=== PATIENT | male | born 1965 | race Caucasian/White ===

== ENCOUNTER → 2016-03-09 | Outpatient (CLI) | payer BC ==
--- NOTE | 2016-03-09 14:39 | CT ---
EXAMINATION TYPE: CT chest wo con DATE OF EXAM: 03/09/2016 2:10 PM COMPARISON: Chest x-ray October, right shoulder 06 November 2015 HISTORY: Solitary Pulmonary Nodule CT DLP: 633 mGycm Automated exposure control for dose reduction was used. FINDINGS: There is no endobronchial lesion, pleural or pericardial effusion. No bony abnormality to account for patient's nodular density seen on plain film. No evident lung mass. There is no mediastinal, axillar y, or hilar adenopathy. Small nodes present in the axillary regions. Aorta is not dilated. Gastric di verticulum is suspected at the cardiac. Diverticular changes associated with the colon. Gallbladder i s contracted. IMPRESSION: NO EVIDENT PULMONARY MASS. FINDINGS ON PLAIN FILM MAY REPRESENT SUPERIMPOSED SOFT TISSUE.
== END | disposition home or self-care (01) ==
LOC: RADCTMAIN 12:08
PROVIDERS: ATTEND Family Medicine
DX: R91.1 Solitary pulmonary nodule (principal)
CPT/HCPCS: 71250

== ENCOUNTER → 2016-04-18 | Outpatient (CLI) | payer BC ==
--- NOTE | 2016-04-18 16:59 | US ---
EXAMINATION TYPE: US scrotum with doppler. Grayscale and color Doppler Duplex imaging performed of t jovana scrotum. DATE OF EXAM: 04/18/2016 4:34 PM COMPARISON: Bilateral scrotal ultrasound February 22, 2012 CLINICAL HISTORY: Testicular Pain N50.8. Rt testicular pain. Pt states he is having rt groin hernia surgery on EXAM MEASUREMENTS: TESTICLES: Right Testicle: 3.9 x 3.4 x 2.8 cm Left Testicle: 3.9 x 2.4 x 3.1 cm EPIDIDYMIS HEAD: Right Epididymis: 1.3 x 1.0 x 1.6 cm Left Epididymis: 1.0 x 1.1 x 0.8 cm Doppler performed to assess for testicular vascularity; good bilateral color flow and waveforms are s een. TECHNOLOGIST IMPRESSION: No masses or lesions seen. Right epididymis appears heterogenous. Presence of hydroceles: no Presence of varicoceles: yes, inferior to left teste. Carine quynh performed. Color images shows satisfactory arterial blood flow to and venous return from both testicles. No susp icious focal intratesticular masses are identified. Heterogeneous right epididymis is noted. Comparison images show symmetric blood flow to both testicles without suspicious asymmetry or skin th ickening identified IMPRESSION: No suspicious asymmetric diminished or increased blood flow to right testicle is seen.
== END | disposition home or self-care (01) ==
LOC: RADUSWWP 16:03
PROVIDERS: ATTEND Surgery
DX: N50.819 Testicular pain, unspecified (principal)
CPT/HCPCS: 76870; 93975

== ENCOUNTER → 2016-04-18 | Outpatient (CLI) | payer BC ==
[2016-04-18 15:47] LABS: EKG EKG PERFORMED
[2016-04-18 16:01] LABS: Basophils % (A) 0 %; CH 30.7; CHCM 33.6; Eosinophils % (A) 1 %; HCT 43.3 % (39.0-53.0); HDW 2.86; HGB 14.1 gm/dL (13.0-17.5); Luc # (Auto) 0.16; Luc % (Auto) 3; Lymphocytes # (A) 1.9 k/uL (1.0-4.8); Lymphocytes % (A) 30 %; MCH 30.1 pg (25.0-35.0); MCHC 32.7 g/dL (31.0-37.0); MCV 91.9 fL (80.0-100.0); Mean Platelet Volume 6.9; Monocytes # (A) 0.3 k/uL (0-1.0); Monocytes % (A) 5 %; Neutrophils # (A) 3.9 k/uL (1.3-7.7); Neutrophils % (A) 62 %; RBC 4.71 m/uL (4.30-5.90); RDW 13.1 % (11.5-15.5); WBC 6.4 k/uL (3.8-10.6); WBC (Perox) 6.85
[2016-04-18 16:08] LABS: Anion Gap 11 mmol/L; Carbon Dioxide 27 mmol/L (22-30); Chloride 105 mmol/L (98-107); Potassium 4.4 mmol/L (3.5-5.1); Sodium 143 mmol/L (137-145)
[2016-04-18 16:13] LABS: Partial Thromboplastin Time 22.8 sec (22.0-30.0); Prothrombin Time 10.3 sec (9.0-12.0)
--- NOTE | 2016-04-18 22:11 | XR ---
EXAMINATION TYPE: XR chest 2V DATE OF EXAM: 04/18/2016 4:20 PM COMPARISON: 11/13/2015 TECHNIQUE: PA and lateral views submitted. HISTORY: Preop FINDINGS: The lungs are clear and there is no pneumothorax, pleural effusion, or focal pneumonia. Hypertrophi c and degenerative change of the spine. IMPRESSION: 1. No acute process.
== END ==
LOC: LABPAT 15:25
PROVIDERS: ATTEND Surgery
DX: Z01.818 Encounter for other preprocedural examination (principal); Z01.810 Encounter for preprocedural cardiovascular examination; Z01.812 Encounter for preprocedural laboratory examination
CPT/HCPCS: 71020; 80051; 85025; 85610; 85730; 93005

== ENCOUNTER 2016-04-21 10:40 | Day surgery (SDC) | payer BC ==
[2016-04-20 15:01] VITALS: BMI 26.4
[~2016-04-21 10:40] MED LIST: DEXAMETHASONE SOD PHOSPHATE 10 MG/ML 1 ML VIAL IV ONE; LACTATED RINGERS 1,000 ML IV SCH; LIDOCAINE 1% 20 ML VIAL (10MG/ML) FOR IV START INTRADERMA PRN; MIDAZOLAM 2 MG/2 ML VIAL IV PRN; SCOPOLAMINE 1.5MG/72HR PATCH TRANSDERM ONE; ceFAZolin 2 GM in SODIUM CHLORIDE 0.9% 100 ML IVPB ONE
[2016-04-21] MEDS ORDERED: LACTATED RINGERS 1,000 ML IV ONE ×2 (11:30→14:59)
[2016-04-21 11:45] VITALS: RESP 16
[2016-04-21] MEDS: HEPARIN SODIUM,PORCINE 5,000 UNIT/ML 1 ML VIAL SQ ONE ×2 (11:45→11:46)
[2016-04-21] MEDS: ONDANSETRON 4 MG/2 ML VIAL IVP ONE ×2 (11:46→15:44)
[2016-04-21] MEDS ORDERED: ROCURONIUM BROMIDE 10 MG/ML 10 ML VIAL IV ONE (13:08)
[2016-04-21] MEDS ORDERED: LIDOCAINE 1% INJ 10MG/ML (20 ML MDV) ONE (13:08)
[2016-04-21] MEDS ORDERED: MIDAZOLAM 2 MG/2 ML VIAL ONE (13:08)
[2016-04-21] MEDS ORDERED: GLYCOPYRROLATE 0.2 MG/ML 2 ML VIAL ONE (13:08)
[2016-04-21] MEDS ORDERED: HYDROmorphone (PF) 1 MG/ML ONE (13:08)
[2016-04-21] MEDS ORDERED: PROPOFOL 10 MG/ML 20 ML VIAL IV ONE (13:08)
[2016-04-21] MEDS ORDERED: SUCCINYLCHOLINE CHLORIDE 100 MG/5 ML SYR IV ONE (13:08)
[2016-04-21] MEDS ORDERED: fentaNYL (PF) 50 MCG/ML 2 ML AMP ONE (13:08)
[2016-04-21] MEDS ORDERED: NEOSTIGMINE 1 MG/ML 10 ML VIAL ONE (13:08)
[2016-04-21] MEDS ORDERED: BUPIVACAIN-EPI 0.25%-1:200,000 30 ML VIAL SQ ONE ×2 (13:35)
[2016-04-21 15:40] VITALS: TEMP 97.8
[2016-04-21] MEDS: HYDROmorphone 1 MG/ML 1 ML SYRINGE IVP PRN ×2 (15:40→15:45)
[2016-04-21] MEDS ORDERED: KETOROLAC 30 MG/ML 1 ML VIAL IVP ONE (15:45)
[2016-04-21] MEDS ORDERED: HYDROcodone/APAP 5-325MG 1 EACH TAB PO ONE (16:52)
[2016-04-21 17:32] VITALS: BP 138/80; PULSE 99
--- NOTE | 2016-04-21 18:02 | P.OP ---
Date of Procedure: 04/21/16 Preoperative Diagnosis: Right inguinal hernia Postoperative Diagnosis: Right indirect inguinal hernia Procedure(s) Performed: RObot assisted laparoscopic hernia repair with mesh Implants: bard 10 x 15 progrip mesh Anesthesia: ALF Surgeon: Elise Zelaya Pathology: none sent Condition: stable Disposition: PACU Description of Procedure: Informed consent was obtained patient and then The patient was brought to the operating room and placed in supine position. General anesthesia with endotracheal intubation was performed as per anesthesia team. A miles catheter was inserted under sterile aseptic precautions. Chlorhexidine was used to prep the skin followed by application of sterile drapes . He was placed in the lithotomy positionA timeout was performed to verify correct patient, correct procedure and correct side. Patient was confirmed to receive perioperative IV antibiotics, subcutaneous heparin 5000 units and bilateral SCDs were placed. The left upper quadrant point was identified and a stab incision was made. Veress needle was introduced and placement was confirmed with the help of the drop test. The abdomen was then insufflated to 15 mmHg. Once that was done 5 mm port was introduced into the left upper quadrant using the Optiview technique after which a 12 mm port was placed in the supraumbilical position and a 8 mm port in the right lower quadrant and tand left lower quadrant. The robot was then docked with the central camera port and the 2 side working ports. The degree of scope was introduced and the abdomen down through the 12 mm port site. Cardiere in the left hand and scissor in the right hand was introduced in the abdominal cavity after which the median umbilical fold was retracted laterally towards the left side a small incision was made at the junction of the umbilical fold and the peritoneum and carried all the way laterally thus creating a small plane in the preperitoneal space. This did this was further dissected with the help of blunt dissection using gentle stroking maneuvers all the way down to Alcides ligament medially and laterally we went inferior exposing the vessels inferiorly. The vas was identified and the hernia sac was teased off of the spermatic cord gently with the help of blunt dissection and once it was taken off and was major that was reduced Bard Pro advanced research programs director mesh was introduced in the abdominal cavity with the lower part above the level of the peritoneal fold was then unfolded so that it covered all the orifices and covered the Alcides's ligament medially once again pain positioned perfectly to seal was applied to the inferior edge of the mesh as well as around the Alcides's ligament after which the peritoneal flaps were closed with the help of running oh Vioxx suture once that was done procedure was completed all incisions and camera was removed and a laparoscope was introduced and the 12 mm port site was closed with the help of a Nam Mac the direct vision after which gas was turned off abdomen was thoroughly desufflated skins was closed with the help of 4-0 Monocryl and Dermabond. Miles catheter was removed patient was extubated and taken to recovery room in stable condition patient tolerated the procedure well there were no complications
== END 2016-04-21 18:19 | disposition home or self-care (01) ==
LOC: OR 10:40
PROVIDERS: ATTEND Surgery
DX: K40.90 Unilateral inguinal hernia, without obstruction or gangrene, not specified as recurrent (principal); Z79.899 Other long term (current) drug therapy
CPT/HCPCS: 49650; S2900

== ENCOUNTER → 2018-09-27 | Outpatient (CLI) | payer OTHER ==
--- NOTE | 2018-09-27 13:38 | XR ---
EXAM TYPE: LUMBAR SPINE X RAY SERIES COMPARISON: NONE HISTORY: Pain TECHNIQUE: Three views are submitted. FINDINGS: Alignment is anatomic. The pedicles are intact. The transverse processes are intact. There is no s pondylolysis or spondylolisthesis. Hypertrophic and degenerative change of the lower lumbar spine wi th facet arthropathy. IMPRESSION: 1. Degenerative disc disease L4-5 and L5-S1. Recommend follow-up MRI.
== END | disposition home or self-care (01) ==
LOC: RADXRMAIN 13:19
PROVIDERS: ATTEND Family Medicine
DX: M51.36 Other intervertebral disc degeneration, lumbar region (principal); M51.37 Other intervertebral disc degeneration, lumbosacral region
CPT/HCPCS: 72100

== ENCOUNTER → 2018-11-16 | Outpatient (CLI) | payer OTHER ==
--- NOTE | 2018-11-16 09:42 | MR ---
EXAMINATION TYPE: MR lumbar spine wo/w con DATE OF EXAM: 11/16/2018 COMPARISON: X-ray 09/17/2018 HISTORY: Low back pain into rt buttocks, rt foot numbness TECHNIQUE: T1 and T2 axial and sagittal images of the lumbar spine are submitted. FINDINGS: There is no abnormal signal seen within the visualized spinal cord or paraspinal soft tissu es. Hypertrophic spurring is seen anteriorly at multiple levels. Mild disc space narrowing at all levels compatible with mild degenerative disc disease. Pedicles are intact. At L1-2 there is disc desiccation with no disc herniation or canal stenosis. No foraminal encroachmen t. At L2-3 there is no disc herniation or canal stenosis. Mild hypertrophic change of the facets. No for aminal encroachment. At L3-4 there is no disc herniation or canal stenosis. Mild hypertrophic change of the facets. No lety ral foraminal encroachment. Minimal broad-based central disc bulging. At L4-5 there is disc desiccation with mild central disc bulging and effacement of thecal sac. No foc al herniation. No Canal stenosis. Very mild bilateral foraminal encroachment. At L5-S1 there is disc desiccation with minimal central disc bulging but no evidence of significant m ass effect upon the thecal sac or canal stenosis. No focal herniation or foraminal encroachment. IMPRESSION: 1. Multilevel mild degenerative disc disease. Very mild disc bulging at L4-L5 with no focal herniatio n or canal stenosis. Mild bilateral foraminal encroachment. 2. Minimal broad-based disc bulging with no canal stenosis or focal herniation L3-4 and L5-S1. 3. Mild multilevel hypertrophy of the facet joints.
== END | disposition home or self-care (01) ==
LOC: RADMRIMAIN 07:37
PROVIDERS: ATTEND Family Medicine
DX: M51.86 Other intervertebral disc disorders, lumbar region (principal); M51.36 Other intervertebral disc degeneration, lumbar region
CPT/HCPCS: 72158; A9585

== ENCOUNTER → 2019-04-18 | Outpatient (CLI) | payer OTHER ==
--- NOTE | 2019-04-18 10:48 | US ---
EXAMINATION TYPE: US prostate transrectal DATE OF EXAM: 04/18/2019 COMPARISON: NONE CLINICAL HISTORY: R39.9 Unspec sign/symptoms involving genitourinary. Enlarged prostate per patient's physician. This examination was performed using the transrectal probe. EXAM MEASUREMENTS: Gland Size: 4.2 x 2.7 x 4.2cm Volume: 24.7ml Predicted PSA: 2.96 Actual PSA (if available): Not available at time of exam Heterogenous gland without any definite lesions seen at this time. IMPRESSION: Heterogenous prostate gland with no discrete sonographic suspicious lesions identified. Predicted PSA = volume x 0.12 ng/ml Calculated Volume = 0.5236 x L x W x H
== END | disposition home or self-care (01) ==
LOC: RADUSWWP 09:31
PROVIDERS: ATTEND Family Medicine
DX: R39.9 Unspecified symptoms and signs involving the genitourinary system (principal)
CPT/HCPCS: 76872

== ENCOUNTER 2019-04-24 10:59 | Day surgery (SDC) | payer OTHER ==
[2019-04-22 13:51] VITALS: BMI 25.0
[~2019-04-24 10:59] MED LIST changes: -DEXAMETHASONE SOD PHOSPHATE 10 MG/ML 1 ML VIAL IV ONE; +LIDOCAINE 1% (10MG/ML) FOR IV START INTRADERMA PRN; -LIDOCAINE 1% 20 ML VIAL (10MG/ML) FOR IV START INTRADERMA PRN; -MIDAZOLAM 2 MG/2 ML VIAL IV PRN; -SCOPOLAMINE 1.5MG/72HR PATCH TRANSDERM ONE; -ceFAZolin 2 GM in SODIUM CHLORIDE 0.9% 100 ML IVPB ONE
[2019-04-24 12:03] VITALS: TEMP 97.9
[2019-04-24] MEDS ORDERED: LIDOCAINE 1% INJ 10MG/ML (20 ML MDV) ONE (12:55)
[2019-04-24] MEDS ORDERED: PROPOFOL 10 MG/ML 20 ML VIAL IV ONE (12:55)
--- NOTE | 2019-04-24 13:22 | P.GSHP ---
History of Present Illness H&P Date: 04/24/19 CHIEF COMPLAINT: Colon screen HISTORY OF PRESENT ILLNESS: The patient is a 53-year-old male who presents for colon screen. Lower endoscopy was offered for further evaluation and management. PAST MEDICAL HISTORY: Please see list. PAST SURGICAL HISTORY: Please see list. MEDICATIONS: Please see list. ALLERGIES: Please see list. SOCIAL HISTORY: No illicit drug use FAMILY HISTORY: No reports of Crohn disease or ulcerative colitis. REVIEW OF ORGAN SYSTEMS: CONSTITUTIONAL: No reports of fevers or chills. PHYSICAL EXAM: VITAL SIGNS: Stable GENERAL: Well-developed pleasant in no acute distress. HEENT: No scleral icterus. Extraocular movements grossly intact. Moist buccal mucosa. NECK: Supple without lymphadenopathy. CHEST: Unlabored respirations. Equal bilateral excursions. CARDIOVASCULAR: Regular rate and rhythm. Distal 2+ pulses. ABDOMEN: Soft, nontender, nondistended. MUSCULOSKELETAL: No clubbing, cyanosis, or edema. ASSESSMENT: 1. Colon screen. PLAN: 1. Recommend proceeding with a lower endoscopy Past Medical History Past Medical History: Atrial Fibrillation Additional Past Medical History / Comment(s): rt inguinal hernia,tinnitis, bottom of rt foot going numb to see neurologist History of Any Multi-Drug Resistant Organisms: None Reported Additional Past Surgical History / Comment(s): Cardioversion,rt rotator cuff injury, Past Anesthesia/Blood Transfusion Reactions: Motion Sickness Additional Past Anesthesia/Blood Transfusion Reaction / Comment(s): no hx blood transfusion Smoking Status: Former smoker - Past Family History Mother Family Medical History: CVA/TIA Father Family Medical History: Cancer Additional Family Medical History / Comment(s): esophageal CA Medications and Allergies Home Medications Medication Instructions Recorded Confirmed Type Ibuprofen [Motrin] 200 - 400 mg PO Q6HR PRN 04/20/16 04/22/19 History Zolpidem Tartrate [Ambien] 10 mg PO HS PRN 04/20/16 04/22/19 History buPROPion [Wellbutrin] 75 mg PO BID 04/22/19 04/22/19 History Allergies Allergy/AdvReac Type Severity Reaction Status Date / Time No Known Allergies Allergy Verified 04/24/19 12:01 Surgical - Exam Vital Signs Temp Pulse Resp BP Pulse Ox 97.9 F 88 16 137/100 95 04/24/19 12:02 04/24/19 12:02 04/24/19 12:02 04/24/19 12:02 04/24/19 12:02
--- NOTE | 2019-04-24 13:24 | P.PCN ---
Date of Procedure: 04/24/19 Description of Procedure: PREOPERATIVE DIAGNOSIS: Colonoscopy screening. POSTOPERATIVE DIAGNOSIS: Colonoscopy screening. Diverticulosis, scattered. OPERATION: Colonoscopy to the ileocecal valve and appendiceal orifice. SURGEON: Anamika Lr MD. ANESTHESIA: MAC. INDICATIONS: The patient is a 53-year-old male who presents for colonoscopy screening. Benefits and risks were described and informed consent was obtained. DESCRIPTION OF PROCEDURE: The patient had undergone Suprep. He had been brought into the operating room and laid in the left lateral decubitus position. After adequate intravenous sedation, the rectum was examined with 2% lidocaine jelly. No external hemorrhoids were encountered. The prostate was unremarkable. The rectal tone was within normal limits. No lesions were palpated in the rectal vault. An Olympus colonoscope was advanced until the ileocecal valve and appendiceal orifice were clearly viewed. The prep was excellent with clear visualization of the mucosal folds. The scope was removed with visualization of each mucosal fold. Scattered diverticulosis was encountered. No colonic polyps were found. No evidence of focal colitis was found. Retroflexion of the scope demonstrated grade 1 internal hemorrhoids without active bleeding or inflammation. The colon was desufflated. The patient had tolerated the procedure well. Withdrawal time was over 6 minutes. FINDINGS: Aronchick preparation quality scale 1 (1-5) Internal hemorrhoids, grade 1 No external prolapsed hemorrhoids. No arteriovenous malformations. No adenomatous polyps. No focal colitis. RECOMMENDATIONS: Lower endoscopy in 10 years2029 Plan - Discharge Summary Discharge Rx Participant: No New Discharge Prescriptions: Continue Ibuprofen [Motrin] 200 - 400 mg PO Q6HR PRN PRN Reason: Pain Zolpidem Tartrate [Ambien] 10 mg PO HS PRN PRN Reason: sleep buPROPion [Wellbutrin] 75 mg PO BID Discharge Medication List Ibuprofen [Motrin] 200 - 400 mg PO Q6HR PRN 04/20/16 [History] Zolpidem Tartrate [Ambien] 10 mg PO HS PRN 04/20/16 [History] buPROPion [Wellbutrin] 75 mg PO BID 04/22/19 [History] Follow up Appointment(s)/Referral(s): Anamika Lr MD [STAFF PHYSICIAN] - As Needed Patient Instructions/Handouts: Diverticulosis (GEN), Diverticulosis Diet (GEN) Activity/Diet/Wound Care/Special Instructions: Repeat colonoscopy in 10 years, 2030 or Cologaurd Discharge Disposition: HOME SELF-CARE
[2019-04-24 13:34] VITALS: RESP 18
[2019-04-24 13:50] VITALS: BP 131/95; PULSE 77
== END 2019-04-24 13:58 | disposition home or self-care (01) ==
LOC: ORWHC2ENDO 10:59
PROVIDERS: ATTEND Surgery Plastic and Reconstructive Surgery
DX: Z12.11 Encounter for screening for malignant neoplasm of colon (principal); K57.30 Diverticulosis of large intestine without perforation or abscess without bleeding; K64.0 First degree hemorrhoids; I48.91 Unspecified atrial fibrillation; K40.90 Unilateral inguinal hernia, without obstruction or gangrene, not specified as recurrent; H93.19 Tinnitus, unspecified ear; R20.0 Anesthesia of skin; Z98.890 Other specified postprocedural states; Z87.828 Personal history of other (healed) physical injury and trauma; Z87.898 Personal history of other specified conditions; Z87.891 Personal history of nicotine dependence; Z79.899 Other long term (current) drug therapy; Z82.3 Family history of stroke; Z80.0 Family history of malignant neoplasm of digestive organs
CPT/HCPCS: J2001; J2704; G0121

== ENCOUNTER → 2020-08-20 | Outpatient (CLI) | payer OTHER ==
--- NOTE | 2020-08-20 17:02 | CONS ---
CONSULTATION A 55-year-old gentleman has been evaluated in Sleep Center for snoring and significant excessive daytime sleepiness. HISTORY OF PRESENT ILLNESS/SLEEP-WAKE EVALUATION: SLEEP SCHEDULE: Patient's usual sleep schedule on weekdays from 9 p.m. to 4:45 a.m. and on weekends from 10 p.m. until 7:30 a.m. He does have problems with falling asleep, although no TV in bedroom. He usually sleeps on the side position. He snores and grind his teeth and he wakes up from sleep multiple times with up to one episode of nocturia. He tosses and turns during the night. No history of hypnagogic hallucinations, sleep paralysis or cataplexy. During the day, patient feels significantly sleepy. [place] Sleepiness Scale is very high range of 20. The patient may take naps one time after lunch. PAST MEDICAL HISTORY: Positive for hypertension, posttraumatic stress disorder, anxiety. SOCIAL HISTORY: Positive for smoking a few cigarettes a day in the past; quit 2-1/2 years ago. Alcohol consumption occasional. PAST SURGICAL HISTORY: Hernia repair, shoulder surgery. MEDICATIONS: Carvedilol 25 mg twice a day, amitriptyline 25 mg once a day. FAMILY HISTORY: Hypertension, heart problems, cancer, thyroid problems. REVIEW OF SYSTEMS: Multiple awakenings from sleep, sleepiness during the day. PHYSICAL EXAMINATION: GENERAL: gentleman without distress. BP 139/97, HR 90, RR 15, height 6 feet 1 inch, weight 206, body mass index 27.1, temperature 98.4, oxygen saturation at room air 97%. Oropharynx low position of soft palate. Mallampati 3. NECK: 16 inches in circumference. Neck: Supple, no JVD. Thyroid is not palpable. LUNGS: Clear to percussion and to auscultation. Good air exchange. No wheezing or rhonchi. HEART: S1, S2 regular. No murmurs, gallops, or rubs. ABDOMEN: Soft and nontender. Bowel sounds are present. No organomegaly appreciated. EXTREMITIES: No clubbing or cyanosis. PERMACULTURE DESIGNER: Awake, alert, and oriented X3. Cranial nerves 2 to 7 intact. There is no fasciculation or atrophy. noted. No focal deficits observed. IMPRESSION: 1. Snoring, multiple awakenings from sleep, low position of soft palate, Mallampati 3, sleepiness. Obstructive sleep apnea-hypopnea syndrome. 2. Significant excessive daytime sleepiness. [place] Sleepiness Scale is 20. Dictate necessity to include hypersomnia and narcolepsy without cataplexy in differential diagnosis. 3. Hypertension. 4. PTSD. 5. Anxiety. PLAN: 1. Polysomnography for evaluation of patient's breathing during sleep. 2. CPAP/BiPAP titration if sleep study confirms obstructive sleep apnea-hypopnea syndrome. 3. Preferable position during sleep on the side. 4. No driving if patient feels any sleepiness. 5. I will see patient for follow up visit to explain results of testing and following plan. 6. Multiple sleep latency test if sleep study will be negative for obstructive sleep apnea-hypopnea syndrome. Thank you very much for referring this patient for consultation. Sincerely, Nhan Root MD, PhD, FAASM Diplomat of [place] [employer] [employer] Internship Coordinator of [facility] [place] MMODL / IJN: [id number] /
== END ==
LOC: SLEEP 14:29
PROVIDERS: ATTEND Internal Medicine
DX: G47.33 Obstructive sleep apnea (adult) (pediatric) (principal); I10 Essential (primary) hypertension; F43.10 Post-traumatic stress disorder, unspecified; F41.9 Anxiety disorder, unspecified; Z79.899 Other long term (current) drug therapy
CPT/HCPCS: 99211

== ENCOUNTER → 2021-04-07 | Outpatient (CLI) | payer OTHER ==
--- NOTE | 2021-04-07 18:14 | SFUN ---
SLEEP CENTER FOLLOW UP NOTE DATE OF SERVICE: 04/07/2021 55 -year-old gentleman has been followed in Sleep Center for treatment of obstructive sleep apnea-hypopnea syndrome. Recently, the patient had sleep study which showed that he has moderate obstructive sleep apnea-hypopnea syndrome with apnea-hypopnea index 19.9. Subsequently, the patient had PAP titration and I discussed results of sleep study with patient in details. She used machine for 2 months, but then developed COVID 19 and was not able to use machine. I reviewed the reading from his machine for the last month. The range of the pressure 5-12, average pressure 5.7. Leak is only 2.4 L/minute which is absolutely perfect. Apnea-hypopnea index only 0.6 which is absolutely normal, but again for that month patient was not compliant with treatment. [place] Sleepiness Scale today significantly increased to 18. PHYSICAL EXAMINATION: GENERAL: Patient in no distress. BP 149/105 on left arm and 157/106 on the right arm, HR 80, RR 16, weight 212, temp 98.1, oxygen saturation at room air 98%. HEENT: PERRLA, EOMI, evaluation of oropharynx showed tongue protrudes midline. NECK: Supple, no JVD. Thyroid is not palpable. LUNGS: Clear to percussion and to auscultation. Good air exchange. No wheezing or rhonchi. HEART: S1, S2 regular. No murmurs, gallops, or rubs. ABDOMEN: Soft and nontender. Bowel sounds are present. No organomegaly appreciated. EXTREMITIES: No clubbing or cyanosis. FUSE COILER: Awake, alert, and oriented X3. Cranial nerves 2 to 7 intact. There is no fasciculation or atrophy. noted. No focal deficits observed. IMPRESSION: 1. Moderate obstructive sleep apnea-hypopnea syndrome; apnea-hypopnea index 19.9, on CPAP respiration is fully normalized. Apnea-hypopnea index 0.6. The patient had good compliance for 2 months and then last months did not use CPAP equipment because at that time he had COVID 19. 2. History of COVID 19 during the last month. 3. Hypertension. 4. PTSD. 5. Anxiety. 6. Recently patient presented with significant excessive daytime sleepiness. [place] Sleepiness Scale 20. Today his [place] Sleepiness Scale also in high range of 18. PLAN: 1. Patient should to use CPAP equipment every night for the whole night. 2. We gave the patient AirFit nasal pillow mask. 3. Sleep hygiene with regular time in bed for at least 7-1/2 to 8 hours. 4. No driving if feeling sleepiness. 5. Followup visit in 2 months or earlier if patient has any problems. Thank you very much for allowing me to participate in management of your patient. Sincerely, Nhan Root MD, PhD, FAASM Diplomat of [place] Sleep Medicine Board of [place] [employer] Customer Training Specialist of [facility] [place] MMODL / JOSEN: [id number] /
== END ==
LOC: SLEEP 16:11
PROVIDERS: ATTEND Internal Medicine
DX: G47.33 Obstructive sleep apnea (adult) (pediatric) (principal); I10 Essential (primary) hypertension; F43.10 Post-traumatic stress disorder, unspecified; F41.9 Anxiety disorder, unspecified; Z86.16 Personal history of COVID-19; Z99.89 Dependence on other enabling machines and devices; Z87.891 Personal history of nicotine dependence

== ENCOUNTER → 2022-05-25 | Outpatient (CLI) | payer BC ==
--- NOTE | 2022-05-25 16:51 | P.PN ---
Subjective DATE: 05/25/2022 FOLLOW UP VISIT. Patient with obstructive sleep apnea hypopnea syndrome return to sleep center for follow-up visit. Information from previous visit have been reviewed. Patient is using PAP equipment every night for the whole night, getting PAP supplies in time. The patient does not have significant problems with the mask, PAP unit and humidification. [place] sleepiness scale is slightly increased to 11, which showed significant improvements comparing to the previous visit when it was 18. I checked information from PAP unit. PAP unit pressure 5-12, average 7.1 cm H2O. Usage is 93 % for more then 4 hours, average 7.5 hours per night. Leak is 17.2 l/m, which is in acceptable range. Apnea Hypopnea Index is 0.6, which is normal. MEDICATIONS:1. Carvedilol 80 mg once a day 2. Aripiprazole 5 mg once a day 3. Amitriptyline 25 mg once a day During physical exam: GENERAL: A pleasant patient without any distress. VITAL SIGNS: BP 159/115, HR 78, RR 16, weight 203.2, patient lost 9 pounds since previous visit, temperature 99, oxygen saturation at room air 98 % . HEENT: PERRLA, EOMI.. NECK: Supple. No JVD. LUNGS: Clear to percussion and to auscultation. Good air exchange. No wheezing or rhonchi. HEART: S1, S2 regular. ABDOMEN: Soft and nontender.[] EXTREMITIES: No clubbing or cyanosis. STRATEGIC MARKETING ASSOCIATE: Awake, alert, and oriented x3. No focal deficit. Impressions: 1. Obstructive sleep apnea-hypopnea syndrome. Patient demonstrated great compliance with treatment, benefiting from treatment. 2. Hypertension. 3. PTSD. 4. History of anxiety. 5. History of COVID-19 in 2021. 6. History of significant excessive daytime sleepiness, improved on CPAP. Plan: 1. Continue using PAP equipment every night for the whole night. 2. To change air filter at least 1-2 times per month. 3. PAP unit should stay lower then position of the head. 4. Advised patient to remove all remaining water from humidifier canister daily and make it dry after each usage. Refill canister with fresh distilled water before each usage. 5. Sleep hygiene with regular time in bed for at least 8 hours. 6. Precautions related to driving. No driving if feel any sleepiness. 7. I will maintain prescription for PAP supplies including mask, tube, filters. 8. Follow up visit in 6 months or earlier if patient has any problems. Thank you very much for allowing me to participate in the management of your patient. Nhan Root MD, PhD, FAASM. Diplomat of [place] [employer], Sleep Medicine Board by [place] [employer] Wine Blender of [facility] [place]
== END ==
LOC: SLEEP 16:19
PROVIDERS: ATTEND Internal Medicine
DX: G47.33 Obstructive sleep apnea (adult) (pediatric) (principal); F43.10 Post-traumatic stress disorder, unspecified; I10 Essential (primary) hypertension; Z79.899 Other long term (current) drug therapy; Z86.16 Personal history of COVID-19; Z99.89 Dependence on other enabling machines and devices; Z87.891 Personal history of nicotine dependence
CPT/HCPCS: 99212

== ENCOUNTER → 2023-11-22 | Outpatient (CLI) | payer BC ==
[2023-11-22 10:39] VITALS: BP 121/90; PULSE 80; RESP 16; TEMP 98.2
--- NOTE | 2023-11-22 10:59 | P.PROGSL ---
Subjective DATE: 11/22/2023 FOLLOW UP VISIT. Patient with obstructive sleep apnea hypopnea syndrome return to sleep center for follow-up visit. Information from previous visit have been reviewed. Patient is using PAP equipment every night for the whole night, getting PAP supplies in time. The patient does not have significant problems with the mask, PAP unit and humidification. [place] sleepiness scale is increased to 14. I checked information from PAP unit. PAP unit pressure 5-12, average 8 cm H2O. Usage is 90% for more then 4 hours, average 7.2 hours per night. Leak is slightly increased to 30 l/m. Apnea Hypopnea Index is 0.6, which is perfect. MEDICATIONS have been reviewed, please see below. During physical exam: GENERAL: A pleasant patient without any distress. VITAL SIGNS: Please see below, weight is 111 lbs. HEENT: PERRLA, EOMI.low position of soft palate, Mallapati 3. NECK: Supple. No JVD. LUNGS: Clear to percussion and to auscultation. Good air exchange. No wheezing or rhonchi. HEART: S1, S2 regular. ABDOMEN: Soft and nontender.[] EXTREMITIES: No clubbing or cyanosis. CRECHE ATTENDANT: Awake, alert, and oriented x3. No focal deficit. Impressions: 1. Obstructive sleep apnea-hypopnea syndrome. Patient demonstrated good compliance with treatment, benefiting from treatment. 2. Hypertension. 3. PTSD. 4. History of anxiety. Plan: 1. Continue using PAP equipment every night for the whole night. 2. Sleep hygiene with regular time in bed for at least 7.5-8 hours 3. PAP unit should stay lower then position of the head. 4. Advised patient to remove all remaining water from humidifier canister daily and make it dry after each usage. Refill canister with fresh distilled water before each usage. 5. Watching weight. 6. Precautions related to driving. No driving if feel any sleepiness. 7. I will maintain prescription for PAP supplies including mask, tube, filters. 8. Follow up visit in 6 months or earlier if patient has any problems. Thank you very much for allowing me to participate in the management of your patient. Nhan Root MD, PhD, FAASM. Diplomat of [employer], Sleep Medicine Board by [employer] Certified Welder of [facility] [place] Objective - Vital Signs Vital Signs: Vital Signs Temp 98.2 F 11/22/23 10:38 Pulse 80 11/22/23 10:38 Resp 16 11/22/23 10:38 BP 121/90 11/22/23 10:38 Pulse Ox 98 11/22/23 10:38 FiO2 Intake & Output 11/21/23 11/22/23 11/22/23 18:59 06:59 18:59 Weight 95.708 kg Home Medications: Home Medications Medication Instructions Recorded Confirmed Type Ibuprofen [Motrin] 200 - 400 mg PO Q6HR PRN 04/20/16 11/22/23 History Zolpidem Tartrate [Ambien] 10 mg PO HS PRN 04/20/16 11/22/23 History buPROPion [Wellbutrin] 75 mg PO BID 04/22/19 04/22/19 History Cariprazine HCl [Vraylar] 3 mg PO DAILY 11/22/23 11/22/23 History carvediloL phosphate [Coreg Cr] 80 mg PO DAILY 11/22/23 11/22/23 History
== END | disposition home or self-care (01) ==
LOC: 3 N SLEEP 10:23
PROVIDERS: ATTEND Internal Medicine
CPT/HCPCS: 99212

== ENCOUNTER → 2024-07-24 | Outpatient (CLI) | payer BC ==
[2024-07-24 11:30] VITALS: BP 120/88; PULSE 88; RESP 16; TEMP 98
--- NOTE | 2024-07-24 11:39 | P.PROGSL ---
Subjective DATE: 07/24/2024 FOLLOW UP VISIT. Patient with obstructive sleep apnea hypopnea syndrome return to sleep center for follow-up visit. Information from previous visit have been reviewed. Patient is using PAP equipment every night for the whole night, getting PAP supplies in time. The patient does not have significant problems with the mask, PAP unit and humidification. [place] sleepiness scale is increased to 13. I checked information from PAP unit. PAP unit pressure 5-12, average 8.9 cm H2O. Usage is 90% for more then 4 hours, average 7.3 hours per night. Leak is 28 l/m, which is in acceptable range. Apnea Hypopnea Index is 1.9, which is normal. MEDICATIONS have been reviewed, please see below. During physical exam: GENERAL: A pleasant patient without any distress. VITAL SIGNS: Please see below, weight is 228 lbs. HEENT: PERRLA, EOMI.low position of soft palate, Mallapati 3. NECK: Supple. No JVD. LUNGS: Clear to percussion and to auscultation. Good air exchange. No wheezing or rhonchi. HEART: S1, S2 regular. ABDOMEN: Soft and nontender.[] EXTREMITIES: No clubbing or cyanosis. WIRE WEAVER: Awake, alert, and oriented x3. No focal deficit. Impressions: 1. Obstructive sleep apnea-hypopnea syndrome. Patient demonstrated great compliance with treatment, benefiting from treatment. 2. Hypertension. 3. PTSD. 4. History of anxiety. Plan: 1. Continue using PAP equipment every night for the whole night. 2. Sleep hygiene with regular time in bed for at least 7.5-8 hours 3. PAP unit should stay lower then position of the head. 4. Advised patient to remove all remaining water from humidifier canister daily and make it dry after each usage. Refill canister with fresh distilled water before each usage. 5. Watching weight. 6. Precautions related to driving. No driving if feel any sleepiness. 7. I will maintain prescription for PAP supplies including mask, tube, filters. 8. Follow up visit in 8 months or earlier if patient has any problems. Thank you very much for allowing me to participate in the management of your patient. Nhan Root MD, PhD, FAASM. Diplomat of [employer], Sleep Medicine Board by [employer] Assessment Analyst of [facility] [place] Objective - Vital Signs Vital Signs: Vital Signs Temp 98 F 07/24/24 11:29 Pulse 88 07/24/24 11:29 Resp 16 07/24/24 11:29 BP 120/88 07/24/24 11:29 Pulse Ox 96 07/24/24 11:29 FiO2 Intake & Output 07/23/24 07/24/24 07/24/24 18:59 06:59 18:59 Weight 103.419 kg Home Medications: Home Medications Medication Instructions Recorded Confirmed Type Ibuprofen [Motrin] 200 - 400 mg PO Q6HR PRN 04/20/16 11/22/23 History Zolpidem Tartrate [Ambien] 10 mg PO HS PRN 04/20/16 11/22/23 History buPROPion [Wellbutrin] 75 mg PO BID 04/22/19 04/22/19 History Cariprazine HCl [Vraylar] 3 mg PO DAILY 11/22/23 11/22/23 History carvediloL phosphate [Coreg Cr] 80 mg PO DAILY 11/22/23 07/24/24 History Amitriptyline HCl 50 mg PO HS 07/24/24 07/24/24 History Vortioxetine Hydrobromide 20 mg PO DAILY 07/24/24 07/24/24 History [Trintellix] amLODIPine 10 mg PO DAILY 07/24/24 07/24/24 History traZODone HCL [Desyrel] 50 mg PO DIRECTED PRN 07/24/24 07/24/24 History
== END ==
LOC: 3 N SLEEP 11:19
PROVIDERS: ATTEND Internal Medicine
DX: G47.33 Obstructive sleep apnea (adult) (pediatric) (principal); I10 Essential (primary) hypertension; F41.9 Anxiety disorder, unspecified; F43.10 Post-traumatic stress disorder, unspecified; Z87.891 Personal history of nicotine dependence; Z99.89 Dependence on other enabling machines and devices
CPT/HCPCS: 99212